=== PATIENT | male | born 1965 | race Caucasian/White ===

== ENCOUNTER 2019-04-26 13:02 | Emergency (ER) | payer OTHER ==
[~2019-04-26] VITALS: Ht 198.1 cm; Wt 121.1 kg
[2019-04-26] MEDS ORDERED: NORCO 5-325 TA1 EAC1 PO (14:49)
[2019-04-26] MEDS ORDERED: NABUMETONE 750750 M1 PO (14:49)
[2019-04-26 15:02] VITALS: BP 132/89
== END 2019-04-26 15:02 | disposition home or self-care (01) ==
LOC: M.ERS 13:02
DX: M54.42 Lumbago with sciatica, left side (principal); Z88.0 Allergy status to penicillin